=== PATIENT | male | born 1975 | race Caucasian/White ===

== ENCOUNTER → 2019-01-07 | Outpatient (CLI) | payer OTHER ==
[~2019-01-07] MED LIST: ANTIBIOTIC; CELEXA40 MG; CIPROFLOXACIN500 M1 PO; FLEXERIL PO; MEDROLDOSEPACK PO; NORCO 5-325 TA1 EACH PO; PERCOCET 5-3251 EACH PO; WELLBUTRIN XL300 MG; ZOFRAN ODT4 MG PO
== END ==
LOC: M.ULTRA 08:00
DX: K76.0 Fatty (change of) liver, not elsewhere classified (principal); R16.1 Splenomegaly, not elsewhere classified